=== PATIENT | male | born 1995 | race African-American/Black ===

== ENCOUNTER 2017-06-22 15:32 | Emergency (ER) | payer OTHER ==
[~2017-06-22] VITALS: Ht 175.3 cm; Wt 73.0 kg
[2017-06-22 19:29] VITALS: BP 123/79
== END 2017-06-22 22:46 | disposition left against medical advice (07) ==
LOC: ER 16:46
DX: R68.84 Jaw pain (principal); Z53.21 Procedure and treatment not carried out due to patient leaving prior to being seen by health care provider

== ENCOUNTER 2017-07-01 10:32 | Emergency (ER) | payer OTHER ==
[~2017-07-01] VITALS: Ht 175.3 cm; Wt 70.0 kg
[2017-07-01] MEDS ORDERED: HYDROCODONE/ACETAMINOPHEN 5/325MG TABLET PO ONE (13:15)
[2017-07-01] MEDS ORDERED: KETOROLAC 60MG/2ML VIAL IM ONE (15:15)
[2017-07-01] MEDS ORDERED: IBUPROFEN 800MG TABLET PO ONE (19:45)
[2017-07-01 19:55] VITALS: BP 109/78
== END 2017-07-01 19:58 | disposition home or self-care (01) ==
LOC: ER 11:16
DX: S02.652A Fracture of angle of left mandible, initial encounter for closed fracture (principal); R51 Headache; F17.200 Nicotine dependence, unspecified, uncomplicated; F12.10 Cannabis abuse, uncomplicated; Y04.0XXA Assault by unarmed brawl or fight, initial encounter; Y93.89 Activity, other specified; Y92.488 Other paved roadways as the place of occurrence of the external cause
CPT/HCPCS: 70110; 70450; 70486; 96372; 99284; Z7610

== ENCOUNTER 2021-11-05 03:53 | Emergency (ER) | payer OTHER, MEDICAID | END 2021-11-05 04:07 | LOC: ER 04:06 | DX: Z02.79 Encounter for issue of other medical certificate (principal); Y08.89XA Assault by other specified means, initial encounter; Y93.89 Activity, other specified; Y92.9 Unspecified place or not applicable | CPT/HCPCS: 99283 ==